=== PATIENT | female | born 1970 | race Asian ===

== ENCOUNTER 2021-01-25 07:16 | Day surgery (SDC) | payer OTHER, SELFPAY ==
[~2021-01-25] VITALS: Ht 154.9 cm; Wt 64.4 kg
[2021-01-25 08:39] LABS: ANION GAP 16.9 (8-16); CARBON DIOXIDE 26.6 mmol/L (21-32); CREATININE 0.8 mg/dL (0.6-1.3); POTASSIUM 4.5 mmol/L (3.5-5.1)
[2021-01-25 08:44] LABS: ALBUMIN 3.6 g/dL (3.4-5.0); TOTAL BILIRUBIN 0.5 mg/dL (0.0-1.0)
[2021-01-25] MEDS ORDERED: PROPOFOL 200 MG/20 ML VIAL IV ONE (09:24)
== END 2021-01-25 11:10 | disposition home or self-care (01) ==
LOC: MMU 07:16 → MDS 07:16
PROVIDERS: ATTEND Internal Medicine Gastroenterology
DX: R13.10 Dysphagia, unspecified (principal); K21.00 Gastro-esophageal reflux disease with esophagitis, without bleeding; G43.909 Migraine, unspecified, not intractable, without status migrainosus; Z20.822 Contact with and (suspected) exposure to COVID-19; Z98.82 Breast implant status; Z79.899 Other long term (current) drug therapy
CPT/HCPCS: 36415; 43239; 71045; 80053; 81025; J2704; J7030; U0003